=== PATIENT | male | born 1955 | race Caucasian/White ===

== ENCOUNTER 2016-06-27 11:22 | Observation (INO) | payer BC ==
--- NOTE | ~2016-06-27 | CO ---
Unit #: [id number] #: [id number] Patient: JACI LEMA JR [id number] [facility]. [place], [place] [address] [id number] MR#: [id number] NAME: JACI LEMA JR ROOM: 463 Age: 61 Sex: M Admission Date: 06/27/2016 : 1955 Attending Physician: Henri Mike Jr., M.D. Primary Care Physician: Jaciel Longo M.D. Consultation Date: 06/27/2016 CONSULTATION REPORT HISTORY OF PRESENT ILLNESS Mr. Lema is a 61-year-old white male, followed by Dr. Esquivel with COPD and chronic respiratory failure, maintained on home O2 at 3 L, who underwent colonoscopy and EGD yesterday. He was kept in the hospital overnight due to the number of polyps removed and some bleeding. Apparently, he had developed cough with greenish sputum and cough with whitish sputum initially late last week and with wheezing and shortness of breath. Tapering dose of prednisone was called in. Over the last couple of days, his sputum has become very thick and green. He has not had any fever, chills, or hemoptysis. He wanted to see us before he was discharged from the hospital. PAST MEDICAL HISTORY Significant for hypertension, arthritis, COPD, chronic respiratory failure, paroxysmal atrial fib maintained on Xarelto. HOME MEDICATIONS Prilosec, multivitamins, Combivent, Lasix, low dose aspirin, Daliresp, oxygen at 4 L, Bystolic, potassium, Amaryl, Xarelto, Dulera, and DuoNeb. ALLERGIES Penicillin. FAMILY HISTORY Heart disease, diabetes, and cancer. SOCIAL HISTORY Does consume alcohol. Smoked two packs a day. 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 REVIEW OF SYSTEMS Otherwise negative than above mentioned problems ten point system. PHYSICAL EXAMINATION VITAL SIGNS: Blood pressure is 124/75, pulse 100, respiratory rate 18, afebrile. HEENT: Normocephalic and atraumatic. Pupils are equal, round, and reactive. Sclerae nonicteric. Nasal passages patent. Posterior pharynx crowded. Mucous membranes moist. NECK: Supple. Trachea midline. LUNGS: Reveal some mild expiratory wheeze. CARDIAC: Regular rate and rhythm. Could not appreciate murmur, rub, or gallop. ABDOMEN: Nontender. Bowel sounds present. Unit #: [id number] #: [id number] Patient: JACI LEMA JR EXTREMITIES: With trace edema bilaterally. No cords palpated. DIAGNOSTIC STUDIES IMAGING STUDIES: No chest x-ray has been done. LABORATORY RESULTS: Previous arterial blood gases a year ago reveal the pH of 7.44, pCO2 of 61, PO2 of 76 on 10 L Oxymizer. No other lab work has been done. IMPRESSION 1. Chronic obstructive pulmonary disease exacerbation. 2. Bronchitis versus pneumonia. 3. Chronic hypoxemic hypercarbic respiratory failure. 4. Diabetes. 5. Paroxysmal atrial fibrillation, maintained on Xarelto. 6. Hypertension. PLAN We will check chest x-ray. He should continue his current pulmonary medicines and his prednisone taper. We will start antibiotics in the form of doxycycline 100 mg b.i.d. We will check chest x-ray to rule out pneumonia. If he has pneumonia, he will likely need hospitalization. If not may be discharged on his routine medicines plus his prednisone taper and doxycycline and follow up with Dr. Esquivel in the office. Dictated by... Olive Camacho/leonora TD: 06/29/2016 01:25 JOB #: [id number] CONSULTATION REPORT Page 1 of 1 X Candelario Hart MD X CONSULTATION REPORT
--- NOTE | ~2016-06-27 | OR ---
Unit #: [id number] #: [id number] Patient: JACI LEMA JR [id number] [address] [place], [place] [address] [id number] I MR#: [id number] NAME: JACI LEMA JR ROOM: 463 Date of Procedure: 06/27/2016 Admission Date: 06/27/2016 Surgeon: Henri Mike Jr., M.D. : 1955 Attending Physician: Henri Mike Jr., M.D. Primary Care Physician: Jaciel Longo M.D. OPERATIVE REPORT INDICATION FOR PROCEDURE The patient is a 61-year-old white male with severe COPD, who recently presented to the office complaining of mid epigastric abdominal pain, possibly some occult ulcer disease versus reflux esophagitis. He has been on medication for acid with the stomach and has not been improved significantly. He is brought in this time for upper endoscopy. He also desires screening colonoscopy. According to him, he had a colonoscopy over 25 years ago, which was negative. PREOPERATIVE DIAGNOSIS Desires screening colonoscopy, and possible esophagitis, possible occult ulcer disease. POSTOPERATIVE DIAGNOSES On upper endoscopy, the patient was noted to have 1+ distal esophagitis with mild gastritis and on colonoscopy to the cecum, he was noted to have mccann-diverticulosis with numerous 5 to 10 mm polyps in the left colon. ANESTHESIA MAC anesthesia. PROCEDURE PERFORMED Flexible fiberoptic esophagogastroduodenoscopy with antral biopsy for Helicobacter pylori and flexible colonoscopy to the cecum with snare polypectomy and clipping of polyp base in the sigmoid colon. DESCRIPTION OF PROCEDURE The patient was positioned in Chew position with left side down. After being given MAC anesthesia, the Olympus XQ scope was passed through the proximal esophagus. The entire esophagus was examined. Proximal two-thirds appeared normal. In the area of the distal esophagus, there was 1+ distal esophagitis without stenosis. The scope was advanced through the GE junction, the cardia, and down the fundic and antral region of the stomach, retroflexed back up to the area of the cardia. There was no significant hiatal hernia present. The stomach distended well without evidence of rigidity. There was some diffuse mild gastritis. A biopsy was taken from the antrum for H. pylori without significant bleeding. The scope was advanced through the pylorus and the duodenal bulb and down to the second portion of the duodenum. The entire duodenal portion examination was within normal limits. The scope was then slowly removed. The patient was repositioned for colonoscopy. Digital rectal examination was performed, which revealed no palpable mass or tenderness. No blood or Unit #: [id number] #: [id number] Patient: JACI LEMA JR stool within the rectal ampulla. Prostate was normal by palpation. The Olympus colonoscope was advanced into the anal canal up the rectum and retroflexed down to the area of the anorectal region. There was no evidence of any fissures. No significant internal hemorrhoids. The scope was then straightened and advanced up in the rectosigmoid. Up in the sigmoid and descending colon areas, there were multiple 3 mm to 10 mm polyps and at least 5 or 6 of these were snared from both the sigmoid and descending colon areas. The base of one was oozing slightly and using the tip of the snare, this was cauterized and subsequently clipped with 2 separate clips with no evidence of any further bleeding. There was no evidence of any perforations. The scope was advanced around the splenic flexure, the transverse colon, around hepatic flexure and ascending colon down in the area of the cecum. The light from the tip of the scope could be seen transilluminating through right lower quadrant abdominal wall area. The scope was not advanced up in the distal ileum. The scope was then slowly removed. There were additional polyps in the left colon. It was felt the patient will need a repeat colonoscopy in the next 3 to 6 months for removal of the rest of the polyps. The scope was removed. The patient tolerated the procedure well and was discharged in satisfactory condition. Dictated by... Henri Mike Jr., M.D. JMB/leonora TD: 06/28/2016 07:57 JOB #: [id number] OPERATIVE REPORT Page 1 of 1 X Henri Mike MD X PROCEDURE OPERATIVE NOTE
--- NOTE | ~2016-06-27 | CR72 ---
[facility] A Service of [facility] RADIOLOGY TEXT RESULTS PATIENT: JACI LEMA JR LOCATION: [place] [address]- : [birth year] UNIT #: [id number] AGE: [address]: Henri Mike MD SEX: M ORDER DR: [id number] [facility] [address] [facility]. [place], [place] [address] [id number] MR#: [id number] Acc #: [id number] NAME: JACI LEMA JR : 1955 SEX: M STUDY DATE/TIME: 06/28/2016 1322 UNIT: [facility] ROOM: [facility] STUDY DESCRIPTION: CR Chest Single View Portable Attending Physician: Henri Mike Jr., M.D. Ordering Physician: Candelario Hart M.D. Primary Care Physician: Jaciel Longo M.D. MEDICAL IMAGING REPORT This report is preliminary unless electronic signature is present EXAM Chest portable 06/28/2016 1322 hours HISTORY 61-year-old man with shortness of air, cough and congestion today. COMPARISON Chest CT 12/01/2015 and chest x-ray 07/03/2015 FINDINGS Upright AP portable chest demonstrates normal heart size. Stable mildly tortuous aorta. The lungs demonstrate emphysematous change with horizontal linear scar at the lateral left lung base. There is basilar vascular crowding without definite pneumonia or edema. There are old healed bilateral rib fractures. IMPRESSION 1. Emphysematous changes with mild basilar vascular crowding and linear scar at the left lateral lung base. There is no definite edema, pneumonia or effusion. 2. Stable old healed bilateral rib fracture deformities. Dictated by... Leighann Doss M.D. THIS IS AN ELECTRONICALLY VERIFIED REPORT Leighann Doss M.D. at 06/29/2016 9:22 AM Darby TD: 06/28/2016 17:28 JOB #: [id number] MEDICAL IMAGING REPORT [facility] A Service of [facility] RADIOLOGY TEXT RESULTS PATIENT: JACI LEMA JR LOCATION: [facility] 46- : [birth year] UNIT #: [id number] AGE: [address]: Henri Mike MD SEX: M ORDER DR: Page 1 of 1 COPY
[~2016-06-27 11:22] MED LIST: ALB/IPRATROPIUM/1 E2 INH; AMARYL PO; AMIODARONE PO; BYSTOLIC5 MG PO; COLCHICINE PO; COMBIVENT U/D3 M2 INH; COZAAR PO; CRESTOR40 MG PO; DALIRESP500 MCG PO; DIGOX0.125 MG PO; DULERA 200 MCG/13 GM INH; KLOR-CON SPRIN10 MEQ PO; LASIX PO; LO-DOSE ASPIRIN81 M1 PO; MULTI-VITAMIN1 EAC1 PO; OXYGEN INH; PRILOSEC PO; PRINIVIL20 M1 PO; PROVENTIL INH0.5 ML NEB; SYMBICORT INH; XARELTO20 MG PO
[2016-06-27 19:10] LABS: HEMATOCRIT 37.1 % (38.0-50.0); HEMOGLOBIN 12.1 gm/dL (13.0-16.0)
[2016-06-28 03:50] LABS: HEMATOCRIT 35.5 % (38.0-50.0); HEMOGLOBIN 11.8 gm/dL (13.0-16.0)
== END 2016-06-28 15:45 | disposition home or self-care (01) | DRG 392 ==
LOC: COPS 11:22 → C4C 14:30
PROVIDERS: Surgery
DX: K21.0 Gastro-esophageal reflux disease with esophagitis (principal); K29.70 Gastritis, unspecified, without bleeding; Z12.11 Encounter for screening for malignant neoplasm of colon; D12.4 Benign neoplasm of descending colon; K91.61 Intraoperative hemorrhage and hematoma of a digestive system organ or structure complicating a digestive system procedure; K57.30 Diverticulosis of large intestine without perforation or abscess without bleeding; J44.1 Chronic obstructive pulmonary disease with (acute) exacerbation; J96.11 Chronic respiratory failure with hypoxia; E11.9 Type 2 diabetes mellitus without complications; I48.0 Paroxysmal atrial fibrillation; Z79.01 Long term (current) use of anticoagulants; I10 Essential (primary) hypertension; E66.9 Obesity, unspecified; M06.9 Rheumatoid arthritis, unspecified; Z88.0 Allergy status to penicillin; Z99.81 Dependence on supplemental oxygen; E78.00 Pure hypercholesterolemia, unspecified; Z87.891 Personal history of nicotine dependence
CPT/HCPCS: 71010; 82947; 85014; 85018; 87077; 88305; 94640; 94664; 94760; G0378